=== PATIENT | female | born 1990 | race Caucasian/White ===

== ENCOUNTER 2020-03-01 08:36 | Emergency (ER) | payer SELFPAY ==
--- NOTE | 2020-03-01 09:10 | ER Document Report ---
ED General - General Chief Complaint: Dizziness Stated Complaint: DIZZINESS/FALLING DOWN Time Seen by Provider: 03/01/20 08:53 Primary Care Provider: GARETH LILLY MD [Primary Care Provider] - Follow up as needed Notes: 20-year-old female presents with an episode of neurologic dysfunction consisting of difficulty putting her boot on her left foot loss of depth perception when leaning over to put the boot on and an episode of ataxia after getting standing up and walking about the room. This happened about an hour and a half ago resolved after 20 minutes. No facial droop language issues headache nausea vomiting. No history of migraines or strokes. Does smoke heavily. 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 - Related Data Allergies/Adverse Reactions: No Known Allergies Allergy (Verified 03/01/20 09:13) Past Medical History - General Information source: Patient, Relative - Social History Smoking Status: Current Every Day Smoker Smoking Education Provided: Yes - The patient ED visit today was directly related to their abuse of tobacco. Family History: CAD, CVA Review of Systems - Review of Systems Notes: REVIEW OF SYSTEMS GEN: Denies fever, chills, weight loss ENT: Denies sore throat, nasal discharge, ear pain EYES: Denies blurry vision, eye pain, discharge CV: Denies chest pain, palpitations, edema RESP: Denies cough, shortness of breath, wheezing GI: Denies abdominal pain, nausea, vomiting, diarrhea MSK: Denies joint pain/swelling, edema, SKIN: Denies rash, skin lesions LYMPH: Denies swollen glands/lymph nodes NEURO see HPI PSYCH: Denies depression, suicidal or homicidal ideation PHYSICAL EXAMINATION General: No acute distress, well-nourished Head: Atraumatic, normocephalic ENT: Mouth normal, oropharynx moist, no exudates or tonsillar enlargement Eyes: Conjunctiva normal, pupils equal, lids normal Neck: No JVD, supple, no guarding CVS: Normal rate, regular rhythm, no murmurs Resp: No resp distress, equal and normal breath sounds bilaterally GI: Nondistended, soft, no tenderness to palpation, no rebound or guarding Ext: No deformities, no edema, normal range of motion in upper and lower ext Back: No CVA or midline TTP Skin: No rash, warm Lymphatic: No lymphadeopathy noted Neuro: Awake, alert. Face symmetric. GCS 15. 5 strength and sensation in all 4 extremities distal and proximal normal sensation to pinprick and light touch throughout, normal [id number]-kikdsz hrjx-gy-eqvu, Romberg, tandem gait and regular gait. Physical Exam - Vital signs Vitals: Temp Pulse Resp BP Pulse Ox 98.4 F 90 18 135/87 H 100 03/01/20 08:41 03/01/20 08:41 03/01/20 08:41 03/01/20 08:41 03/01/20 08:41 Course - Re-evaluation Re-evalutation: 03/01/20 10:23 Patient presents with episode of gait dysfunction and visual disturbance now completely resolved with a completely normal neuro exam including extended testing She is young but certainly could have had a TIA given her smoking pattern and likely obesity hypertension etc. Since it will have a solid story for TIA and get a do a TIA work-up today. The patient was observed in the ED had no new symptoms and no occurrence of her original symptoms. EKG does not show A. fib labs all normal CT normal Intensive smoking cessation discussion undertaken We will follow-up with primary care for risk factor stratification cholesterol testing etc. I have discussed with the patient there likely diagnosis, aftercare plan, follow-up plans and my usual and customary return precautions. They verbalized understanding of this. - Vital Signs Vital signs: Temp Pulse Resp BP Pulse Ox 98.4 F 90 18 135/87 H 100 03/01/20 08:41 03/01/20 09:30 03/01/20 09:30 03/01/20 09:30 03/01/20 09:30 - Laboratory Result Diagrams: 03/01/20 09:27 03/01/20 09:27 - Diagnostic Test Radiology reviewed: Image reviewed, Reports reviewed - EKG Interpretation by Me EKG shows normal: Sinus rhythm Rate: Normal Rhythm: NSR - No ST or T wave changes Discharge - Discharge Clinical Impression: Dizziness, Encounter for tobacco use cessation counseling Condition: Good Disposition: HOME, SELF-CARE Instructions: Dizziness ([facility]) Additional Instructions: You were seen in the ER for an episode of depth perception problems and dizziness. Although this could have been a transient ischemic attack, or "mini stroke" I think that is unlikely, and the testing that we did today to look for stroke was negative. The most important thing you can do to change her life and improve her health is to stop smoking. Please follow-up with your primary care within 1 week and if any symptoms recur in any way please return to the ER. Forms: Smoking Cessation Education, Return to Work Referrals: GARETH LILLY MD [Primary Care Provider] - Follow up as needed
[2020-03-01 09:46] LABS: ABSOLUTE EOSINOPHILS # (AUTO) 0.1 10^3/uL (0.0-0.6); ABSOLUTE LYMPHOCYTES (AUTO) 2.1 10^3/uL (0.5-4.7); ABSOLUTE MONOCYTES (AUTO) 0.5 10^3/uL (0.1-1.4); ABSOLUTE NEUT (AUTO) 4.4 10^3/uL (1.7-8.2); BASOPHILS % (AUTO) 0.6 % (0-2); EOSINOPHILS % (AUTO) 2.1 % (0-6); HEMATOCRIT 39.3 % (36.0-47.0); HEMOGLOBIN 13.7 g/dL (12.0-15.5); LYMPHOCYTES % (AUTO) 29.3 % (13-45); MEAN CORPUSCULAR HEMOGLOBIN 31.5 pg (27.0-33.4); MEAN CORPUSCULAR HGB CONC 34.9 g/dL (32.0-36.0); MEAN CORPUSCULAR VOLUME 90 fl (80-97); MONOCYTES % (AUTO) 6.7 % (3-13); PLATELET COUNT 212 10^3/uL (150-450); RED BLOOD COUNT 4.36 10^6/uL (3.72-5.28); RED CELL DISTRIBUTION WIDTH 13.2 % (11.5-14.0); SEGMENTED NEUTROPHILS % (AUTO) 61.3 % (42-78); TOTAL CELLS COUNTED % (AUTO) 100 %; WHITE BLOOD COUNT 7.2 10^3/uL (4.0-10.5)
--- NOTE | 2020-03-01 09:51 | RADIOLOGY REPORT (SQ) ---
EXAM DESCRIPTION: CT HEAD WITHOUT IMAGES COMPLETED DATE/TIME: 03/01/2020 9:42 am REASON FOR STUDY: ataxia COMPARISON: None. TECHNIQUE: Axial images acquired through the brain without intravenous contrast. Images reviewed wi th bone, brain and subdural windows. Additional sagittal and coronal reconstructions were generated. Images stored on PACS. All CT scanners at this facility use dose modulation, iterative reconstruction, and/or weight based d osing when appropriate to reduce radiation dose to as low as reasonably achievable (ALARA). [facility]: Dose Right [facility]: CareDose [facility]: Dose Right [facility]: Teradose 4D [facility]: Smart [employer] RADIATION DOSE: CT Rad equipment meets quality standard of care and radiation dose reduction techniq ues were employed. CTDIvol: 53.2 mGy. DLP: 1017 mGy-cm. mGy. LIMITATIONS: None. FINDINGS: VENTRICLES: Asymmetric prominence of the posterior horn of the left lateral ventricle. Po ssibly congenital variant. No hydrocephalus. CEREBRUM: No masses. No hemorrhage. No midline shift. No evidence for acute infarction. Normal gra y/white matter differentiation. No areas of low density in the white matter. CEREBELLUM: No masses. No hemorrhage. No alteration of density. No evidence for acute infarction. EXTRAAXIAL SPACES: No fluid collections. No masses. ORBITS AND GLOBE: No intra- or extraconal masses. Normal contour of globe without masses. CALVARIUM: No fracture. PARANASAL SINUSES: No fluid or mucosal thickening. SOFT TISSUES: No mass or hematoma. OTHER: No other significant finding. IMPRESSION: Asymmetric posterior horn of the left lateral ventricle. Etiology of this is uncertain. This may represent a normal variant. Correlation with MRI for further characterisation may be bene ficial. EVIDENCE OF ACUTE STROKE: NO. COMMENT: Quality ID # 436: Final reports with documentation of one or more dose reduction techniques (e.g., Automated exposure control, adjustment of the mA and/or kV according to patient size, use of iterative reconstruction technique) TECHNICAL DOCUMENTATION: JOB ID: [id number] 2010 [employer]- All Rights Reserved Reading location - IP/workstation name: [email or web address]
[2020-03-01 10:15] LABS: ANION GAP 6 (5-19); BLOOD UREA NITROGEN 9 mg/dL (7-20); CALCIUM 8.9 mg/dL (8.4-10.2); CARBON DIOXIDE 26 mmol/L (22-30); CHLORIDE 107 mmol/L (98-107); GLUCOSE 86 mg/dL (75-110); POTASSIUM 4.4 mmol/L (3.6-5.0)
[2020-03-01 10:32] VITALS: BP 101/77
--- NOTE | 2020-03-01 12:44 | EKG REPORT ---
SEVERITY:- ABNORMAL ECG - SINUS RHYTHM NONSPECIFIC T ABNORMALITIES, ANTERIOR LEADS : Confirmed by: Elijah Hughes MD 01-Mar-2020 12:44:09
== END 2020-03-01 10:30 | disposition home or self-care (01) ==
LOC: ER 08:36
DX: R42 Dizziness and giddiness (principal); F17.200 Nicotine dependence, unspecified, uncomplicated
CPT/HCPCS: 36415; 70450; 80048; 81025; 85025; 93005; 93010; 99285

== ENCOUNTER 2020-06-01 12:27 | Emergency (ER) | payer SELFPAY ==
--- NOTE | 2020-06-01 12:47 | RADIOLOGY REPORT (SQ) ---
EXAM DESCRIPTION: CT HEAD WITHOUT IMAGES COMPLETED DATE/TIME: 06/01/2020 11:39 am REASON FOR STUDY: Right-sided weakness COMPARISON: 03/01/2020 TECHNIQUE: Axial images acquired through the brain without intravenous contrast. Images reviewed wi th bone, brain and subdural windows. Additional sagittal and coronal reconstructions were generated. Images stored on PACS. All CT scanners at this facility use dose modulation, iterative reconstruction, and/or weight based d osing when appropriate to reduce radiation dose to as low as reasonably achievable (ALARA). [facility]: Dose Right [facility]: CareDose [facility]: Dose Right [facility]: Teradose 4D [facility]: Smart [employer] RADIATION DOSE: mGy. LIMITATIONS: None. FINDINGS: VENTRICLES: Normal size and contour. CEREBRUM: No masses. No hemorrhage. No midline shift. No evidence for acute infarction. Normal gra y/white matter differentiation. No areas of low density in the white matter. CEREBELLUM: No masses. No hemorrhage. No alteration of density. No evidence for acute infarction. EXTRAAXIAL SPACES: No fluid collections. No masses. ORBITS AND GLOBE: No intra- or extraconal masses. Normal contour of globe without masses. CALVARIUM: No fracture. PARANASAL SINUSES: No fluid or mucosal thickening. SOFT TISSUES: No mass or hematoma. OTHER: No other significant finding. IMPRESSION: NO ACUTE INTRACRANIAL IMAGING FINDINGS. EVIDENCE OF ACUTE STROKE: NO. COMMENT: Quality ID # [id number]: Final reports with documentation of one or more dose reduction techniques (e.g., Automated exposure control, adjustment of the mA and/or kV according to patient size, use of iterative reconstruction technique) TECHNICAL DOCUMENTATION: JOB ID: [id number] 2010 [employer]- All Rights Reserved Reading location - IP/workstation name: [email or web address]
[2020-06-01 13:00] LABS: ABSOLUTE EOSINOPHILS # (AUTO) 0.1 10^3/uL (0.0-0.6); ABSOLUTE LYMPHOCYTES (AUTO) 1.7 10^3/uL (0.5-4.7); ABSOLUTE MONOCYTES (AUTO) 0.5 10^3/uL (0.1-1.4); ABSOLUTE NEUT (AUTO) 6.4 10^3/uL (1.7-8.2); BASOPHILS % (AUTO) 0.3 % (0-2); EOSINOPHILS % (AUTO) 0.7 % (0-6); HEMATOCRIT 38.4 % (36.0-47.0); HEMOGLOBIN 13.2 g/dL (12.0-15.5); LYMPHOCYTES % (AUTO) 19.8 % (13-45); MEAN CORPUSCULAR HEMOGLOBIN 31.3 pg (27.0-33.4); MEAN CORPUSCULAR HGB CONC 34.3 g/dL (32.0-36.0); MEAN CORPUSCULAR VOLUME 91 fl (80-97); MONOCYTES % (AUTO) 5.4 % (3-13); PLATELET COUNT 183 10^3/uL (150-450); RED BLOOD COUNT 4.21 10^6/uL (3.72-5.28); RED CELL DISTRIBUTION WIDTH 13.3 % (11.5-14.0); SEGMENTED NEUTROPHILS % (AUTO) 73.8 % (42-78); TOTAL CELLS COUNTED % (AUTO) 100 %; WHITE BLOOD COUNT 8.6 10^3/uL (4.0-10.5)
--- NOTE | 2020-06-01 13:22 | EKG REPORT ---
SEVERITY:- DEFECTIVE ECG - SINUS RHYTHM NONSPECIFIC T CHANGES ANT CHEST LEADS : Confirmed by: Benito Gary 01-Jun-2020 13:21:13
[2020-06-01 13:24] LABS: ALBUMIN 3.8 g/dL (3.5-5.0); ALKALINE PHOSPHATASE 83 U/L (38-126); ANION GAP 8 (5-19); ASPARTATE AMINO TRANSFERASE 31 U/L (14-36); BILIRUBIN,DIRECT 0.2 mg/dL (0.0-0.4); BILIRUBIN,TOTAL 0.4 mg/dL (0.2-1.3); BLOOD UREA NITROGEN 9 mg/dL (7-20); CALCIUM 9.2 mg/dL (8.4-10.2); CARBON DIOXIDE 21 mmol/L (22-30); CHLORIDE 109 mmol/L (98-107); CREATINE KINASE 40 U/L (30-135); GLUCOSE 101 mg/dL (75-110); POTASSIUM 4.2 mmol/L (3.6-5.0); TOTAL PROTEIN 6.7 g/dL (6.3-8.2)
--- NOTE | 2020-06-01 15:03 | RADIOLOGY REPORT (SQ) ---
EXAM DESCRIPTION: MRI HEAD WITHOUT IMAGES COMPLETED DATE/TIME: 06/01/2020 2:37 pm REASON FOR STUDY: Drowsy, leftward gaze, right arm limp COMPARISON: CT of the head without contrast from 06/01/2020. TECHNIQUE: Multiplanar imaging includes non-contrasted T1, T2, FLAIR, and diffusion with ADC map seq uences. Images stored on PACS. LIMITATIONS: None. FINDINGS: On the sagittal T1 weighted sequence there are areas of high T1 signal in gyriform pattern near the junction of the right frontal and parietal lobes are (image 5 of series 3) that demonstrate s high signal on the T2 weighted sequence. There is an area of restricted diffusion in the DWI that involve the insula and left parietal and tem poral lobes. There is no acute intracranial hemorrhage, extra-axial fluid collection, mass effect or midline shift . The caliber of the ventricles is concordant with the degree of sulcation. There is no effacement of the basal subarachnoid cisterns. There is no susceptibility artifact on the gradient sequence. The orbits and globes are intact. The paranasal sinuses are clear. IMPRESSION: 1. Acute infarcts in the distribution of the left MCA. 2. Probable subacute to chronic infarct associated with cortical laminar necrosis in the distributio n of the right MCA. EVIDENCE OF ACUTE STROKE: YES. LEFT MCA COMMENT: This report was called to HAMZAH LEVIN MD at14:50 on 06/01/2020. TECHNICAL DOCUMENTATION: JOB ID: [id number] 2010 [employer]- All Rights Reserved Reading location - IP/workstation name: [email or web address]
--- NOTE | 2020-06-01 15:05 | RADIOLOGY REPORT (SQ) ---
EXAM DESCRIPTION: MRA HEAD WITHOUT IMAGES COMPLETED DATE/TIME: 06/01/2020 2:37 pm REASON FOR STUDY: DROWSY, LEFTWARD GAZE, RIGHT ARM LIMP COMPARISON: None. TECHNIQUE: Axial 3-D mkik-mg-noxdub acquisition imaging performed through the brain in the area of t he [facility] [place]. Images reformatted using 3-D MIPS. LIMITATIONS: None. FINDINGS: SOURCE IMAGES: Occlusion of the distal M1 segment of the left MCA. The ACAs and right MCA are patent. There is no aneurysm. 3-D MIP: The vertebrobasilar junction is excluded from the [id number]-iv-[id number]. The executive director of marketing are patent. OTHER: No other finding. IMPRESSION: Occlusion of the distal M1 segment of the left MCA. TECHNICAL DOCUMENTATION: JOB ID: [id number] [employer]- All Rights Reserved Reading location - IP/workstation name: [email or web address]
[2020-06-01 15:13] LABS: INTERNATIONAL RATION (INR) 0.89; PROTHROMBIN TIME 12.3 SEC (11.4-15.4)
[2020-06-01] MEDS ORDERED: ONDANSETRON HCL INJ/PF 4 MG/2 ML SDV IV ONE (15:24)
[2020-06-01] MEDS ORDERED: LEVETIRACETAM 1000 MG/NACL-ISO 1,000 MG/100 ML RTUPB IV ONE (15:25)
--- NOTE | 2020-06-01 15:35 | ER Document Report ---
Entered by ALICIA GARNETT SCRIBE 06/01/20 1230 Acting as scribe for:HAMZAH LEVIN MD ED General - General Stated Complaint: POSSIBLE STROKE/FALL Time Seen by Provider: 06/01/20 12:29 Primary Care Provider: GARETH LILLY MD [Primary Care Provider] - Follow up as needed Mode of Arrival: Medic Information source: Parent, Emergency Med Personnel Cannot obtain history due to: Uncooperative Notes: This 29 year old female patient presents to the emergency department today with complaints of a fall out of a chair prior to arrival today and right sided weakness. Mom reports that her and the patient were walking out to the car, the patient sat down on a bench and mom went to get the car to pull it up. The patient fell out of the chair while waiting, mom stood her up and her "legs gave out again". Mom reports that the patient was crying hysterically during this and would not talk to her. Mom reports the patient had a similar episode in February when she had difficulty putting on her left boot and tying the laces. She was seen and evaluated here with an unremarkable work-up including head CT at that time. She was diagnosed with possible TIA. She is a smoker and takes control pills. EMS reports a changing mental status changes throughout the interaction stating that initially she was alert and verbal but eventually stopped answering questions and would only say I do not know and shake her head. Later history obtained from patient's father is that he called her this morning as he frequently does and when she answered she was crying but could not explain what was going on. He thought she was probably having a panic attack and called the patient's mother to go by and check on her. The mother found that she was not acting right as noted above. EMS was called. The last known well was 8 PM last night. - Related Data Allergies/Adverse Reactions: No Known Allergies Allergy (Verified 03/01/20 09:13) Past Medical History - General Information source: Parent, [facility] Records Cannot obtain history due to: Uncooperative - Social History Smoking Status: Current Every Day Smoker Cigarette use (# per day): No - mom reports patient now vapes Lives with: Spouse/Significant other Family History: Reviewed & Not Pertinent, CAD, CVA Pulmonary Medical History: Reports: Hx Asthma Psychiatric Medical History: Reports: Hx Anxiety, Hx Depression Surgical Hx: Negative Review of Systems - Review of Systems -: Yes ROS unobtainable due to patient's medical condition - uncooperative Physical Exam - Vital signs Vitals: Temp Resp BP Pulse Ox 97.8 F 18 148/84 H 99 06/01/20 12:45 06/01/20 12:45 06/01/20 12:45 06/01/20 12:45 - HEENT Head: Normocephalic, Atraumatic Eyes: Other - Left lateral gaze, pupils seem normal Conjunctiva: Normal Pupils: PERRL - Respiratory Respiratory status: No respiratory distress Breath sounds: Normal - Cardiovascular Rhythm: Regular Heart sounds: Normal auscultation Murmur: Yes - Abdominal Inspection: Normal Distension: No distension Bowel sounds: Normal - Back Back: Normal - Extremities General upper extremity: Other - Seem to have a weak sports agent with the left hand, and no attempt with the right hand. General lower extremity: Normal inspection - Moves both lower extremities equally well but will not when requested. - Neurological Neuro grossly intact: No Notes: Patient has left lateral gaze, intermittently not using the right upper extremity, but when she does it is minimal effort. Left upper extremity unremarkable, able to move both of the lower extremities. Babinski test is positive bilaterally with the patient withdrawing. There is no facial asymmetry noted, but the patient is unable to follow any complex requests. Her answer to every question was "I don't know". - Psychological Associated symptoms: Other - Patient rarely will answer question and seems drowsy. - Skin Skin Temperature: Warm Skin Moisture: Dry Skin Color: Normal Course - Re-evaluation Re-evalutation: 06/01/20 15:[address] scan did not show acute changes. Due to the leftward gaze, and the intermittent right upper extremity movement, and the history of anxiety and panic attacks, MRI was ordered in order to exclude the possibility of acute CVA. MRI and MRA came back showing acute infarcts in the distribution of the left MCA and probable subacute to chronic infarct associated with cortical laminar necrosis in the distribution of the right MCA. Due to the subacute infarcts which probably occurred either in February or subsequent to that visit, and the last known well was about 16 hours before presentation, the patient is not a TPA candidate. 06/01/20 15:28 After I discussed the case with the neurologist at [facility], the patient started becoming a little drowsy, and then became nauseous and trying to vomit. She was given Zofran 8 mg IV and Keppra 1000 mg IV. - Vital Signs Vital signs: Temp Pulse Resp BP Pulse Ox 97.8 F 84 19 136/83 H 99 06/01/20 12:45 06/01/20 13:05 06/01/20 15:00 06/01/20 15:22 06/01/20 15:00 - Laboratory Results Result Diagrams: 06/01/20 12:45 06/01/20 12:45 Laboratory Results Interpreted: 06/01/20 06/01/20 12:45 12:45 D-Dimer 0.67 H Chloride 109 H Carbon Dioxide 21 L Critical Laboratory Results Reviewed: No Critical Results - Radiology Results Critical Radiology Results Reviewed: Yes Attending or Supervising Physician who Reviewed Radiology: Dr. Levin - See the radiologist report - EKG Interpretation by Me EKG shows normal: Sinus rhythm, [place], Intervals, QRS Complexes, ST-T Waves - Consults Dr. Shea Time consulted: 15:05 Consulted provider: other - Will accept the patient at [facility]. 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 Discharge - Discharge Clinical Impression: Acute cerebrovascular accident (CVA) Condition: Fair Disposition: ON LICENSE OF [facility] Referrals: GARETH LILLY MD [Primary Care Provider] - Follow up as needed I personally performed the services described in the documentation, reviewed and edited the documentation which was dictated to the scribe in my presence, and it accurately records my words and actions.
[2020-06-01 15:49] VITALS: BP 129/95
== END 2020-06-01 15:50 | disposition short-term general hospital (02) ==
LOC: ER 12:27
DX: I63.9 Cerebral infarction, unspecified (principal); R53.1 Weakness; R11.0 Nausea; Z79.3 Long term (current) use of hormonal contraceptives
CPT/HCPCS: 93005; 99285; 96374; 96375; 36415; 82962; 82550; 84703; 85025; 85610; 80053; 84484; 85379; 70551; 70544; 70450; 93010; J2405; J1953